=== PATIENT | male | born 1970 | race Caucasian/White ===

== ENCOUNTER 2016-12-24 14:35 | Inpatient (IN) | payer MEDICAID ==
[~2016-12-24] VITALS: Ht 165.1 cm; Wt 79.8 kg
--- NOTE | 2016-12-24 15:03 | NUR ---
PT IS IN ROOM #1B. DR JIMENEZ EVALUATED THE PT.
[2016-12-24 15:11] LABS: CREATININE 1.1 mg/dL (0.6-1.3); POTASSIUM 3.7 mmol/L (3.5-5.1)
[2016-12-24 15:12] LABS: BASOPHILS % (AUTO) 0.2 % (0.0-2.0); EOSINOPHILS % (AUTO) 0.1 % (0.0-7.0); HEMATOCRIT 50.3 % (40-50); HEMOGLOBIN 16.9 G/DL (14.0-18.0); LYMPHOCYTES # (AUTO) 1.9 K/UL (0.8-4.8); LYMPHOCYTES % (AUTO) 14.7 % (20.5-51.5); MEAN CORPUSCULAR HEMOGLOBIN 29.7 UUG (27.0-31.0); MEAN CORPUSCULAR HGB CONC 34 g/dL (32.0-37.0); MEAN CORPUSCULAR VOLUME 88.3 FL (82.0-92.0); MONOCYTES # (AUTO) 0.5 K/UL (0.1-1.30); MONOCYTES % (AUTO) 3.8 % (0.0-11.0); NEUTROPHILS # (AUTO) 10.4 K/UL (1.8-8.9); NEUTROPHILS % (AUTO) 81.2 % (38.5-71.5); PLATELET COUNT (AUTO) 202 K/UL (150-450); WHITE BLOOD COUNT (AUTO) 12.8 K/UL (4.0-11.2)
[2016-12-24 15:28] LABS: BILIRUBIN,DIRECT 0.1 mg/dL (0.0-0.2); BILIRUBIN,TOTAL 0.6 mg/dL (0.2-1.0); TOTAL PROTEIN, SERUM 7.7 g/dL (6.4-8.2)
[2016-12-24 15:41] LABS: BAND % (MANUAL) 3 % (0-10); LYMPHOCYTES % (MANUAL) 17 % (20-40); MONOCYTES % (MANUAL) 4 % (2-10); NEUTROPHILS % (MANUAL) 76 % (42-75)
--- NOTE | 2016-12-24 18:00 | NUR ---
DR GOSS EVALUATED THE PT.
--- NOTE | 2016-12-24 18:58 | NUR ---
REPORT GIVEN TO DIVER HELPER RN.
[2016-12-24 19:45] VITALS: BP 115/68
--- NOTE | 2016-12-24 19:45 | NUR ---
PATIENT TRANSFERRED BY AKIL FROM ER AND ADMITTED INTO TELEMETRY 221. PATIENT ALERT/ORIENTED. PATIENT IN STABLE CONDITION. VITAL SIGNS TAKEN: BP 115/68; HR 48; SPO2 98% T:97.3 RR 16 PATIENT PLACED ON SENIOR GENETIC COUNSELOR: SINUS VANDANA. BELONGINGS CHECKLIST CHECKED AND APPROVED. ADMISSION ASSESSMENT AND PHYSICAL ASSESSMENT COMPLETED: CRACKLES HEARD UPON AUSCULTATION. SKIN INTACT. PATIENT COMPLAINS OF CHEST PAIN 4/10 ON PAIN SCALE. WILL CONTINUE TO MONITOR.
--- NOTE | 2016-12-24 20:04 | NUR ---
REPORT WAS GIVEN TO HOME DEPOT REP. PT WAS TRANSFERED TO TELEMETRY ROOM #221.
[2016-12-25] VITALS: BP 101/47
[2016-12-25 06:00] VITALS: BP 92/60
--- NOTE | 2016-12-25 06:39 | NUR ---
PATIENT AWAKE ON BED, NO SOB NOTED. NO C/O CHEST PAIN OR ANY DISCOMFORT .SINUS VANDANA ON THE MONITOR. WILL CONTINUE TO MONITOR
[2016-12-25 08:42] LABS: BASOPHILS % (AUTO) 0.4 % (0.0-2.0); EOSINOPHILS # (AUTO) 0.3 K/uL (0.0-0.7); EOSINOPHILS % (AUTO) 2.9 % (0.0-7.0); HEMATOCRIT 47.1 % (40-50); LYMPHOCYTES % (AUTO) 21.7 % (20.5-51.5); MEAN CORPUSCULAR HEMOGLOBIN 30.3 UUG (27.0-31.0); MEAN CORPUSCULAR HGB CONC 34 g/dL (32.0-37.0); MEAN CORPUSCULAR VOLUME 89.3 FL (82.0-92.0); MONOCYTES # (AUTO) 0.5 K/UL (0.1-1.30); MONOCYTES % (AUTO) 5.3 % (0.0-11.0); NEUTROPHILS # (AUTO) 6.4 K/UL (1.8-8.9); NEUTROPHILS % (AUTO) 69.7 % (38.5-71.5); PLATELET COUNT (AUTO) 154 K/UL (150-450); RED BLOOD CELL COUNT(AUTO) 5.27 MIL/UL (4.7-6.1)
[2016-12-25 09:05] LABS: WHITE BLOOD COUNT (AUTO) 9.2 K/UL (4.0-11.2)
[2016-12-25 10:32] LABS: THYROID STIMULATING HORMONE 0.655 mIU/mL (0.358-3.740)
[2016-12-25 11:11] LABS: CREATININE 1.2 mg/dL (0.6-1.3); MAGNESIUM 2.1 mg/dL (1.8-2.4); PHOSPHOROUS 3.4 mg/dL (2.5-4.9); POTASSIUM 4.2 mmol/L (3.5-5.1)
[2016-12-25 11:25] VITALS: BP 105/71
--- NOTE | 2016-12-25 15:00 | NUR ---
HOME INSTRUCTIONS REVIEWED WITH PT. AND FAMILY. PT. DENIES PAIN. IV D/C'D. [id number] DISCHARGED TO FAMILY.
== END 2016-12-25 15:30 | disposition home or self-care (01) | DRG 203 ==
LOC: ER 14:35 → TELE 19:22
PROVIDERS: ADMIT Internal Medicine; ATTEND Internal Medicine
DX: M94.0 Chondrocostal junction syndrome [Tietze] (principal); R00.1 Bradycardia, unspecified; D72.828 Other elevated white blood cell count
CPT/HCPCS: 36415; 70030-TC; 71010; 83690; 83735; 84100; 84443; 85025; 85730; 93005; 93307; A4663; J1650; J2270; J2405; J3010; J3490; J7030; J7050; Q9967